=== PATIENT | male | born 1980 | race Caucasian/White ===

== ENCOUNTER 2016-11-24 07:54 | Emergency (ER) | payer SELFPAY ==
[~2016-11-24] VITALS: Ht 165.1 cm; Wt 84.4 kg
[2016-11-24 08:06] VITALS: BP 150/112
== END 2016-11-24 08:52 | disposition home or self-care (01) ==
LOC: ED 07:54
DX: M54.42 Lumbago with sciatica, left side (principal); Z76.0 Encounter for issue of repeat prescription; E78.00 Pure hypercholesterolemia, unspecified; Z87.442 Personal history of urinary calculi

== ENCOUNTER 2017-02-04 13:58 | Emergency (ER) | payer SELFPAY ==
[2017-02-04 18:28] VITALS: BP 124/88
== END 2017-02-04 18:28 | disposition home or self-care (01) ==
LOC: ED 13:58
DX: M54.32 Sciatica, left side (principal); I10 Essential (primary) hypertension; Z79.891 Long term (current) use of opiate analgesic; Z79.899 Other long term (current) drug therapy

== ENCOUNTER 2017-05-19 07:14 | Emergency (ER) | payer MEDICAID ==
[~2017-05-19] VITALS: Ht 165.1 cm; Wt 80.7 kg
[2017-05-19 08:51] VITALS: BP 104/58
== END 2017-05-19 08:51 | disposition home or self-care (01) ==
LOC: ED 07:14
DX: G89.29 Other chronic pain (principal); M54.5 Low back pain; I10 Essential (primary) hypertension; E11.9 Type 2 diabetes mellitus without complications; E78.00 Pure hypercholesterolemia, unspecified; Z79.84 Long term (current) use of oral hypoglycemic drugs
CPT/HCPCS: J1885

== ENCOUNTER 2017-12-12 17:58 | Emergency (ER) | payer SELFPAY ==
[~2017-12-12] VITALS: Ht 165.1 cm; Wt 85.3 kg
[2017-12-12 18:36] VITALS: Ht 165.1 cm; Wt 85.3 kg
[2017-12-12 18:59] VITALS: BP 154/101
== END 2017-12-12 18:59 | disposition home or self-care (01) ==
LOC: ED 17:58
DX: G89.29 Other chronic pain (principal); M54.5 Low back pain; I10 Essential (primary) hypertension; E11.9 Type 2 diabetes mellitus without complications; E78.00 Pure hypercholesterolemia, unspecified